=== PATIENT | male | born 1995 | race American Indian/Alaskan Native ===

== ENCOUNTER 2020-05-18 07:57 | Emergency (ER) | payer OTHER ==
[~2020-05-18] VITALS: Ht 172.7 cm; Wt 61.2 kg
[2020-05-18] MEDS ORDERED: BASAGLAR K100 UNIT/1 SUB-Q ×2 (08:18→08:21)
[2020-05-18] MEDS ORDERED: HUMALOG KW200 UNIT/1 SUB-Q (08:24)
== END 2020-05-18 10:55 | disposition home or self-care (01) ==
LOC: ED 07:57
DX: E11.649 Type 2 diabetes mellitus with hypoglycemia without coma (principal); Z79.4 Long term (current) use of insulin
CPT/HCPCS: 80053; 81001; 85025; 99284

== ENCOUNTER 2020-12-24 16:28 | Emergency (ER) | payer OTHER ==
[~2020-12-24] VITALS: Ht 172.7 cm; Wt 61.2 kg
[~2020-12-24 16:28] MED LIST: BASAGLAR K100 UNIT/1 SUB-Q; HUMALOG KW200 UNIT/1 SUB-Q
== END 2020-12-24 18:30 | disposition home or self-care (01) ==
LOC: ED 16:28
DX: E10.65 Type 1 diabetes mellitus with hyperglycemia (principal); Z79.4 Long term (current) use of insulin; Z20.822 Contact with and (suspected) exposure to COVID-19
CPT/HCPCS: 71045; 80053; 81001; 82010; 85025; 99285-25; C9803; J7030; U0003

== ENCOUNTER 2021-04-08 15:42 | Emergency (ER) | payer OTHER ==
[~2021-04-08] VITALS: Ht 172.7 cm; Wt 61.2 kg
[2021-04-08] MEDS ORDERED: BASAGLAR K100 UNIT/1 (16:01)
[2021-04-08] MEDS ORDERED: MULTI VITAMIN1 EACH PO (16:01)
[2021-04-08] MEDS ORDERED: CALCIUM + VITA1 EAC2 PO (16:02)
[2021-04-08] MEDS ORDERED: VITAMIN D210 MCG PO (16:03)
== END 2021-04-08 16:35 | disposition home or self-care (01) ==
LOC: ED 15:42
DX: R41.82 Altered mental status, unspecified (principal); T38.3X5A Adverse effect of insulin and oral hypoglycemic [antidiabetic] drugs, initial encounter; E10.9 Type 1 diabetes mellitus without complications; Z79.4 Long term (current) use of insulin
CPT/HCPCS: 99284

== ENCOUNTER 2023-01-12 19:12 | Emergency (ER) | payer OTHER ==
[~2023-01-12 19:12] MED LIST changes: +BASAGLAR K100 UNIT/1; +CALCIUM + VITA1 EAC2 PO; +MULTI VITAMIN1 EACH PO; +VITAMIN D210 MCG PO
[2023-01-12 19:52] LABS: HEMOGLOBIN 13.4 g/dL (12.0-18.0)
[2023-01-12 19:55] LABS: MCH 28.6 (27-36); MCHC 33.5 g/dl (30-36)
[2023-01-12 19:59] LABS: BASOPHILS 0.2 % (0-2); HEMATOCRIT 40.2 % (35.0-50.0); MCV 85.4 fl (81-99); MONOCYTES 5.3 % (0-12); NEUTROPHILS 85.5 % (39-80); PLATELET COUNT 199 K/uL (140-440); RDW 12.9 (10.5-15.0)
[2023-01-12 20:02] LABS: BILIRUBIN, URINE NEGATIVE (negative); BLOOD/HGB, URINE MODERATE (Negative); KETONE, URINE TRACE (Negative); LEUK ESTERASE, URINE SMALL (negative); NITRITE, URINE POSITIVE (negative); PH, URINE 6.5 (5-7)
[2023-01-12 20:08] LABS: CRYSTALS, URINE NONE SEEN (0-1+); EPITHELIAL CELLS, URINE SQUAMOUS 1+ /lpf (0-1+); WHITE BLOOD CELLS, URINE >50 /HPF (0-5)
[2023-01-12 20:09] LABS: BACTERIA, URINE 3+ /hpf (negative); CASTS, URINE NONE SEEN \\lpf; REFLEX CULTURE, URINE Yes (No)
[2023-01-12 20:10] LABS: ALBUMIN 3.4 g/dL (3.4-5.0); ALBUMIN/GLOBULIN RATIO 0.85 (1.1-2.4); ANION GAP 11.3 (7-21); BILIRUBIN, TOTAL 0.5 ng/dL (0.2-1.0); BUN/CREATININE RATIO 18.42 (6.0-28.6); CALCIUM 8.2 mg/dL (8.5-10.1); CREATININE, SERUM 0.76 mg/dL (0.70-1.30); POTASSIUM 3.3 mmol/L (3.5-5.1); PROTEIN, TOTAL 7.4 g/dL (6.4-8.2)
[2023-01-12 20:19] LABS: LACTIC ACID, BLOOD 0.9 mmol/L (0.4-2.0)
[2023-01-12 20:29] LABS: INFLUENZA B NAA NEGATIVE (NEGATIVE); RESPIRATORY SYNCYTIAL VIR NAA NEGATIVE (NEGATIVE)
[2023-01-12] MEDS ORDERED: CEFDINIR300 MG PO (20:40)
[2023-01-12 21:08] VITALS: BP 105/64
== END 2023-01-12 21:09 | disposition home or self-care (01) ==
LOC: ED 19:12
PROVIDERS: Family Medicine
DX: N39.0 Urinary tract infection, site not specified (principal); E11.9 Type 2 diabetes mellitus without complications; Z79.4 Long term (current) use of insulin; Z79.899 Other long term (current) drug therapy; Z20.822 Contact with and (suspected) exposure to COVID-19
CPT/HCPCS: 36415; 71045; 80053; 81001; 83605; 85025; 87088; 87502; 96374; 99283-25; C9803; J0696; J7121; U0002

== ENCOUNTER 2023-08-04 10:23 | Emergency (ER) | payer OTHER ==
[~2023-08-04] VITALS: Ht 172.7 cm; Wt 66.9 kg
[~2023-08-04 10:23] MED LIST changes: +CEFDINIR300 MG PO
[2023-08-04 10:43] LABS: BASOPHILS 0.5 % (0-2); EOSINOPHILS 0.5 % (0-6); HEMATOCRIT 43.4 % (35.0-50.0); HEMOGLOBIN 14.7 g/dL (12.0-18.0); LYMPHOCYTES 22.1 % (24-44); MCH 29.5 (27-36); MCV 86.9 fl (81-99); MONOCYTES 4.7 % (0-12); NEUTROPHILS 72.2 % (39-80); PLATELET COUNT 290 K/uL (140-440); RBC 4.99 M/ul (4.3-5.7); RDW 13.3 (10.5-15.0)
[2023-08-04 11:40] LABS: ALBUMIN 3.7 g/dL (3.4-5.0); ALBUMIN/GLOBULIN RATIO 0.86 (1.1-2.4); ANION GAP 14.6 (7-21); BILIRUBIN, TOTAL 0.4 ng/dL (0.2-1.0); BUN/CREATININE RATIO 14.06 (6.0-28.6); CALCIUM 8.8 mg/dL (8.5-10.1); CREATININE, SERUM 0.64 mg/dL (0.70-1.30); POTASSIUM 3.6 mmol/L (3.5-5.1)
[2023-08-04 11:54] VITALS: BP 115/79
== END 2023-08-04 11:54 | disposition home or self-care (01) ==
LOC: ED 10:23
PROVIDERS: Emergency Medicine
DX: E11.649 Type 2 diabetes mellitus with hypoglycemia without coma (principal); Z79.4 Long term (current) use of insulin; Z79.899 Other long term (current) drug therapy
CPT/HCPCS: 36415; 80053; 83036; 85025